=== PATIENT | female | born 1960 | race African-American/Black ===

== ENCOUNTER → 2017-06-02 | Day surgery (SDC) | payer OTHER ==
[~2017-06-02] MED LIST: ERYTHROMYCIN O3.5 G1; HYDROCODON-ACET15 M1 PO; LISINOPRIL-HCTZ1 T15 PO; MEDROL4 MG/DOSE- PO; MUSCLE RELAXER PO; NORFLEX100 MG PO; PREMPRO PO; PREMPRO1 TAB PO
--- NOTE | ~2017-06-02 | OR ---
Unit #: [id number] #: [id number] Patient: AISHA SHERIDAN [id number] [address] [place], [place] [address] [id number] O MR#: [id number] NAME: AISHA SHERIDAN ROOM: Date of Procedure: 06/02/2017 Admission Date: 06/02/2017 Surgeon: Gamal Pizano M.D. : 1960 Attending Physician: Gamal Pizano M.D. Primary Care Physician: Daisy Alvarado M.D. OPERATIVE REPORT PREOPERATIVE DIAGNOSES Colorectal cancer surveillance. The patient has family history of colon cancer in her mother. PROCEDURES PERFORMED Colonoscopy up to cecum and terminal ileum with excellent preparation and good visualization. POSTOPERATIVE DIAGNOSES Completely normal examination up to cecum and terminal ileum. The quality of the prep was excellent. No polyps, diverticula, or hemorrhoids were seen. RECOMMENDATIONS Repeat colonoscopy in 5 years. SEDATION USED MAC. DESCRIPTION OF PROCEDURE Following detailed explanation of potential risks and complications of a colonoscopy, namely perforation, bleeding, and complications related to sedation, the patient was brought to GI lab and laid in left lateral decubitus position. A digital rectal examination was performed, which was normal. Lubricated tip of the Olympus video colonoscope was inserted through the anus and advanced under direct vision. The scope was advanced and passed up to sigmoid into descending colon. No diverticula were noted in this area. The scope tip was then navigated all the way up to cecum with visualization of the ileocecal valve and the appendiceal orifice. Preparation was excellent with good visualization and photodocumentation was obtained. Last few inches of the terminal ileum also visualized after intubation of the ileocecal valve and appeared normal. Successive segments of the colonic mucosa were examined upon withdrawal and appeared unremarkable. There being no polyps, mass lesions, AVMs, or diverticula. The patient did not have any hemorrhoids at anal verge. The scope was then withdrawn. The patient returned to the recovery area. She tolerated the procedure without any postprocedure complications. Dictated by... Gamal Pizano M.D. Unit #: [id number] #: [id number] Patient: AISHA SHERIDAN LIANA/sandeep TD: 06/02/2017 16:51 JOB #: [id number] CC: Daisy Alvarado M.D. OPERATIVE REPORT Page 1 of 1 X Gamal Pizano MD PROCEDURE OPERATIVE NOTE
== END | disposition home or self-care (01) ==
LOC: COPS 12:20
DX: Z12.11 Encounter for screening for malignant neoplasm of colon (principal); Z80.0 Family history of malignant neoplasm of digestive organs; I10 Essential (primary) hypertension; M19.90 Unspecified osteoarthritis, unspecified site; Z79.899 Other long term (current) drug therapy